=== PATIENT | male | born 1990 | race Caucasian/White ===

== ENCOUNTER 2025-06-13 10:22 | Outpatient (REF) | payer SELFPAY ==
[2025-06-13 19:30] LABS: Anion Gap 9.9 mmol/L (3-11); BUN 15 mg/dL (9-23); CO2 28.1 mmol/L (20.0-31.0); Calcium 9.4 mg/dL (8.3-10.6); Chloride 104 mmol/L (98-107); Glucose 99 mg/dL (74-106); Potassium 3.6 mmol/L (3.5-5.1); Sodium 142 mmol/L (136-145)
== END 2025-06-13 10:23 | disposition home or self-care (01) ==
LOC: NCHCN 10:22
PROVIDERS: Nurse Practitioner; PCP Family Medicine
DX: G43.909 Migraine, unspecified, not intractable, without status migrainosus (principal)
CPT/HCPCS: 80048